=== PATIENT | male | born 1990 | race African-American/Black ===

== ENCOUNTER 2017-05-05 14:03 | Emergency (ER) | payer OTHER, SELFPAY ==
[~2017-05-05 14:03] MED LIST: Iopamidol 370 76% 125 ML VIAL FS ONE; Sodium Chloride 0.9% 1,000 ML BAG ONE
[2017-05-05] MEDS ORDERED: Tetracaine 0.5% OPHTH SOLN/PF 4 ML BOT ONE (14:16)
[2017-05-05 15:01] LABS: Hemoglobin 13.6 g/dL (14.0-18.0); Hypochromia SLIGHT = 6-15 cells (100X) (0-5/hpf); Lymphocytes 41 % (21-51); MDiff Complete? YES; Mean Corpuscular HGB CONC 33.6 g/dL (32.0-36.0); Mean Corpuscular Hemoglobin 31.9 pg (27.0-31.0); Monocytes 5 % (0-10); Neutrophil 54 % (42-75); PLT Morphology Comment Appears Adequate; Platelet Count 231 thou/uL (130-400); RBC Distribution Width 12.1 % (11.5-14.5); Red Blood Cell (RBC) Count 4.26 mill/uL (4.70-6.10); White Blood Cell (WBC) Count 4.4 thou/uL (4.8-10.8)
[2017-05-05 15:03] LABS: ALT (SGPT) 13 U/L (8-55); AST (SGOT) 27 U/L (5-34); Albumin 4.3 g/dL (3.5-5.0); Alkaline Phosphatase 73 U/L (40-150); Anion Gap 14 mmol/L (10-20); BUN (Urea Nitrogen) 8 mg/dL (8.9-20.6); Bilirubin, Total 1.1 mg/dL (0.2-1.2); Calc. Creatinine Clearance 0 mL/min (70-130); Calcium 9.1 mg/dL (7.8-10.44); Carbon Dioxide 25 mmol/L (22-29); Chloride 105 mmol/L (98-107); Estimated GFR-MDRD Greater than 90; Globulin 2.6 g/dL (2.4-3.5); Glucose 99 mg/dL (70-105); Potassium 3.6 mmol/L (3.5-5.1); Protein, Total 6.9 g/dL (6.0-8.3); Sodium 140 mmol/L (136-145)
[2017-05-05] MEDS ORDERED: Vancomycin HCl 500 MG VIAL ONE (15:48)
--- NOTE | 2017-05-05 16:01 | CT ---
CT ORBITS WITH IV CONTRAST: Date: 05/05/17 PROVIDED CLINICAL HISTORY: Left eye pain and swelling. FINDINGS: There is conspicuous soft tissue thickening and hypodensity involving the upper and lower eyelids on the left. There is a normal appearance to the globes and other orbital contents bilaterally. The para nasal sinuses are clear, with the exception of minimal scattered ethmoid air cell opacification. The osseous structures demonstrate no concerning lytic or blastic lesions. The visualized intracranial co ntents appear grossly normal. IMPRESSION: Findings compatible with preseptal cellulitis/conjunctivitis about the left orbit. There is no eviden ce for post septal inflammatory change. POS: [facility]
== END 2017-05-05 17:00 | disposition home or self-care (01) ==
LOC: MADERS 14:03
DX: L03.213 Periorbital cellulitis (principal)
CPT/HCPCS: 70481; 80053; 85025; 85652; 87070; 87077; 87205; 96361; 96365; J3370; J7050

== ENCOUNTER 2017-05-09 11:45 | Emergency (ER) | payer SELFPAY | END 2017-05-09 13:00 | disposition home or self-care (01) | LOC: MADERS 11:45 | DX: S01.152A Open bite of left eyelid and periocular area, initial encounter (principal); W54.0XXA Bitten by dog, initial encounter | CPT/HCPCS: 99283 ==

== ENCOUNTER 2018-10-06 16:53 | Emergency (ER) | payer SELFPAY ==
--- NOTE | 2018-10-06 17:22 | RAD ---
Right hand 3 views HISTORY: Right hand injury. FINDINGS: Comminuted slightly impacted predominantly oblique fracture of the mid fourth metacarpal sh aft is present with one quarter shaft width posterior displacement and apex posterior angulation. No evidence of intra-articular extension. IMPRESSION: Displaced, angulated right fourth metacarpal fracture
--- NOTE | 2018-10-06 17:56 | RAD ---
XR Hand Rt 3 View STANDARD History: Post reduction Comparison:Radiograph same day Findings: Improved alignment fourth metacarpal fracture with mild volar angulation remaining. There does appear to be abnormal ossific density at the base of the fourth metacarpal which may reflect a splintered fragment. Impression: Improved alignment postreduction.
== END 2018-10-06 17:50 | disposition home or self-care (01) ==
LOC: MADERS 16:53
DX: S62.304A Unspecified fracture of fourth metacarpal bone, right hand, initial encounter for closed fracture (principal); F17.220 Nicotine dependence, chewing tobacco, uncomplicated; Y04.0XXA Assault by unarmed brawl or fight, initial encounter
CPT/HCPCS: 26605

== ENCOUNTER 2018-10-17 16:28 | Emergency (ER) | payer SELFPAY ==
--- NOTE | 2018-10-20 07:31 | RAD ---
EXAM: 3 views of the right hand COMPARISON: None HISTORY: Hand pain FINDINGS: 3 views of the right hand shows a fracture of the fourth metacarpal mid shaft which is mild ly comminuted. No degenerative changes are seen. No soft tissue swelling is present. IMPRESSION: Right fourth metacarpal fracture
== END 2018-10-17 17:50 | disposition home or self-care (01) ==
LOC: MADERS 16:28
DX: S62.324A Displaced fracture of shaft of fourth metacarpal bone, right hand, initial encounter for closed fracture (principal); F17.220 Nicotine dependence, chewing tobacco, uncomplicated; X58.XXXA Exposure to other specified factors, initial encounter

== ENCOUNTER 2019-12-05 16:04 | Emergency (ER) | payer SELFPAY ==
--- NOTE | 2019-12-05 16:51 | CT ---
CT OF PELVIS PERFORMED WITHOUT CONTRAST ENHANCEMENT: 12/05/19 HISTORY: Left inguinal pain. Evaluation for hernia. No free fluid seen in the pelvis. No pelvic lymphadenopathy or mass. There is no evidence for any ing uinal hernia. Review of osseous structures show no acute findings. SI joints are symmetric. Minimal arthrosis of th e symphysis region. IMPRESSION: No evidence of hernia. POS: [facility]
[2019-12-05] MEDS ORDERED: predniSONE 20 MG TAB ONE (17:12)
== END 2019-12-05 17:21 | disposition home or self-care (01) ==
LOC: MADERS 16:04
DX: R10.32 Left lower quadrant pain (principal); F17.220 Nicotine dependence, chewing tobacco, uncomplicated
CPT/HCPCS: 72192; J7512

== ENCOUNTER 2021-06-08 10:27 | Emergency (ER) | payer SELFPAY | END 2021-06-08 10:50 | disposition home or self-care (01) | LOC: MADERS 10:27 | DX: S59.911A Unspecified injury of right forearm, initial encounter (principal); F17.220 Nicotine dependence, chewing tobacco, uncomplicated; X58.XXXA Exposure to other specified factors, initial encounter | CPT/HCPCS: 99283 ==

== ENCOUNTER 2021-06-15 13:13 | Emergency (ER) | payer SELFPAY ==
[2021-06-15] MEDS ORDERED: Ibuprofen 800 MG TAB ONE (14:49)
== END 2021-06-15 15:17 | disposition home or self-care (01) ==
LOC: MADERS 13:13
DX: S56.911A Strain of unspecified muscles, fascia and tendons at forearm level, right arm, initial encounter (principal); F17.220 Nicotine dependence, chewing tobacco, uncomplicated; X50.0XXA Overexertion from strenuous movement or load, initial encounter; Z79.899 Other long term (current) drug therapy